=== PATIENT | female | born 1980 | race Caucasian/White ===

== ENCOUNTER 2018-11-25 17:13 | Inpatient (IN) | payer MEDICAID ==
[~2018-11-25] VITALS: Ht 152.4 cm; Wt 81.2 kg
[2018-11-25 17:18] VITALS: BP 115/61
--- NOTE | 2018-11-25 17:21 | NUR ---
PT SENT TO LOBBY FOR AVAILABLE BED.
--- NOTE | 2018-11-25 19:34 | NUR ---
PATIENT AMBULATED TO ER BED 6.
--- NOTE | 2018-11-25 19:45 | NUR ---
URINE COLLECTED AND SENT TO LAB
--- NOTE | 2018-11-25 19:46 | NUR ---
PT REPORTS LOWER BACK PAIN X2 MONTHS THAT EXACERBATED LAST NIGHT AND NOW RADIATES TO THE CENTER OF ABDOMEN, AND IS NOT RELIEVED BY IBUPROFEN. PT DENIES ANY TRAUMA/INJURY, DYSURIA, N/V/D/FEVER, NO OBVIOUS DEFORMITY/BRUISING NOTED. SKIN IS PINK/WARM/DRY; AAOX4 WITH EVEN AND STEADY GAIT; LUNGS CLEAR BL; HR EVEN AND REGULAR; VSS; PATIENT POSITIONED FOR COMFORT; HOB ELEVATED; BEDRAILS UP X1; BED DOWN. ER MD MADE AWARE OF PT STATUS.
[2018-11-25 20:53] LABS: APPEARANCE,URINE HAZY (CLEAR); BILIRUBIN,URINE 2+ (NEGATIVE); BLOOD, URINE NEGATIVE (NEGATIVE); COLOR,URINE DARK YELLOW (YELLOW); LEUKOCYTE ESTERASE ,URINE NEGATIVE (NEGATIVE); NITRITE, URINE NEGATIVE (NEGATIVE); UGLUCOSE NEGATIVE (NEGATIVE)
[2018-11-25] MEDS ORDERED: KETOROLAC 30 MG/ML VIAL IVP ONE (21:15)
--- NOTE | 2018-11-25 21:15 | NUR ---
PT C/O PAIN. ER MD TO PUT IN ORDERS FOR PAIN RELIEF.
[2018-11-25 21:45] LABS: BASOPHILS % (AUTO) 0.2 % (0.0-2.0); EOSINOPHILS # (AUTO) 0.1 K/uL (0-0.4); EOSINOPHILS % (AUTO) 1.3 % (0.0-4.0); HEMATOCRIT 38.4 % (36-48); HEMOGLOBIN 12.7 g/dL (12.0-16.0); LYMPHOCYTES # (AUTO) 1.9 K/uL (2.5-16.5); LYMPHOCYTES % (AUTO) 26.9 % (20.5-51.1); MEAN CORPUSCULAR HEMOGLOBIN 30 pg (27-31); MEAN CORPUSCULAR HGB CONC 33 g/dL (33-37); MEAN CORPUSCULAR VOLUME 88.8 fL (80-94); MONOCYTES # (AUTO) 0.4 K/uL (0.8-1.0); MONOCYTES % (AUTO) 6.1 % (1.7-9.3); NEUTROPHILS # (AUTO) 4.6 K/uL (1.8-7.7); NEUTROPHILS % (AUTO) 65.5 % (42.2-75.2); PLATELET COUNT (AUTO) 263 K/uL (140-450); RED BLOOD CELL COUNT(AUTO) 4.32 MIL/uL (4.20-5.40); RED CELL DISTRIBUTION WIDTH 13.8 % (11.6-13.7)
[2018-11-25 22:01] LABS: ALBUMIN 3.4 g/dL (3.4-5.0); ANION GAP 11.4 (8-16); CARBON DIOXIDE 27.9 mmol/L (21-32); CREATININE 0.9 mg/dL (0.6-1.3); POTASSIUM 4.3 mmol/L (3.5-5.1); TOTAL BILIRUBIN 1.8 mg/dL (0.0-1.0)
--- NOTE | 2018-11-25 22:15 | NUR ---
PT STILL C/O PAIN, NO RELIEF WITH TORADOL, ER MD AWARE.
[2018-11-25] MEDS ORDERED: MORPHINE SULFATE 4 MG/ML SYR IVP ONE (22:25)
--- NOTE | 2018-11-25 23:00 | NUR ---
PAIN CONTROLLED POST MORPHINE ADMIN.
[2018-11-26] MEDS: DEXT 5% / NACL 0.9% 500 ML IV SCH ×3 (00:10→14:28)
[2018-11-26] MEDS ORDERED: ONDANSETRON 4 MG/2 ML VIAL IVP PRN (00:10)
[2018-11-26] MEDS ORDERED: ACETAMINOPHEN 325 MG TAB PO PRN (00:10)
[2018-11-26] MEDS ORDERED: ZOLPIDEM 5 MG TAB PO PRN (00:10)
[2018-11-26] MEDS ORDERED: HYDROcodone/APAP 7.5/325 MG 1 TAB PO PRN (00:10)
[2018-11-26 00:45] VITALS: BP 118/70
--- NOTE | 2018-11-26 00:45 | NUR ---
RECEIVED FROM ER PER WHEELCHAIR AWAKE AND ALERT. PT. AMBULATING WELL TO RESTROOM INSIDE ROOM. ROM X 4. CLEAR SPEECH. NO SOB. DENIES PAIN AT THIS TIME RT MEDICATED IN ER WITH MORPHINE AND TORADOL IVP. DX. OF CHOLECYSTITIS. MEDICAL SURGICAL PT. CARE PLANS DISCUSSED WITH HER AND CALL LIGHT WITH IN REACH. ORIENTED TO ROOM , RAPID RESPONSE AND CARE GIVERS. IVF SITE TO LAC# 20 INTACT AND NO INFILTRATION NOTED. SKIN INTACT. NO EDEMA. CTAB.
--- NOTE | 2018-11-26 00:53 | NUR ---
Patient will be admitted to care of DR FLORES. Admited to 106-B. Will go to room TELE 106-B. Belongings list completed. Report to SIDDHARTHA [id number].
[2018-11-26 01:04] LABS: BARBITURATE, URINE NEG. ng/ml (NEG <=200); BENZODIAZEPINE, URINE NEG. ng/mL (NEG <=200); CANNABINOID, URINE NEG. ng/mL (NEG <=50); COCAINE, URINE NEG. ng/mL (NEG <=300); OPIATE, URINE NEG. ng/mL (NEG <=2000); PHENCYCLIDINE SCREEN,URINE NEG. ng/mL (NEG <=25)
[2018-11-26 01:04] LABS: FREE T4 (FREE THYROXINE) 1.1 ng/dL (0.76-1.46); MAGNESIUM 2.3 mg/dL (1.8-2.4); PHOSPHORUS 4.1 mg/dL (2.5-4.9); THYROID STIMULATING HORMONE 2.28 uIU/mL (0.34-3.74)
[2018-11-26 01:05] LABS: PROTHROMBIN TIME 9.7 secs (10.8-13.4)
[2018-11-26] MEDS ORDERED: cefTRIAXone 1,000 MG VIAL ONE (01:56)
[2018-11-26] MEDS ORDERED: metroNIDAZOLE 500 MG/NS PREMIX 100 ML IV ONE (01:56)
--- NOTE | 2018-11-26 02:01 | NUR ---
FIRST DOSE OF FLAGYL IVP 500 MG INFUSING ORDERED TO START NOW INITIAL DOSE. PT. AWAKE AND ALERT. ABLE TO VERBALIZE NEEDS WELL.
--- NOTE | 2018-11-26 02:28 | NUR ---
PT. SLEEPING. NO NOTED RESTLESSNESS. NO RASHES NOTED TO SKIN. NO S/S OF ALLERGIC REACTIONS TO FLAGYL IVP INFUSING.
[2018-11-26] MEDS ORDERED: metroNIDAZOLE 500 MG/NS PREMIX 100 ML IV SCH (05:00)
--- NOTE | 2018-11-26 05:28 | NUR ---
PT. SLEEPING AT THIS TIME.
--- NOTE | 2018-11-26 06:29 | NUR ---
PATIENT HAS BEEN SCREENED AND CATEGORIZED MODERATE NUTRITION RISK. PATIENT WILL BE SEEN WITHIN 3-5 DAYS OF ADMISSION. 11/28/18-11/30/18 SERGO TOWNSEND MS, RDN
--- NOTE | 2018-11-26 06:37 | NUR ---
CXR TAKEN . TOLERATED WELL. NO PAIN COMPLAINTS DONE THIS SHIFT.
--- NOTE | 2018-11-26 06:56 | NUR ---
NO COMPLAINTS OF ANY PAIN THIS SHIFT. A/O X 4. ROM X 4. WILL ENDORSE TO AM RN FOR CONTINUITY OF CARE. VERBALIZES WELL. CXR TAKEN. REMINDED NPO EXCEPT MEDICATIONS. "OK"
[2018-11-26 07:00] LABS: BASOPHILS % (AUTO) 0.2 % (0.0-2.0); EOSINOPHILS # (AUTO) 0.1 K/uL (0-0.4); EOSINOPHILS % (AUTO) 1.5 % (0.0-4.0); HEMOGLOBIN 12.3 g/dL (12.0-16.0); LYMPHOCYTES # (AUTO) 1.8 K/uL (2.5-16.5); MEAN CORPUSCULAR HEMOGLOBIN 30 pg (27-31); MEAN CORPUSCULAR HGB CONC 33 g/dL (33-37); MEAN CORPUSCULAR VOLUME 89.8 fL (80-94); MONOCYTES # (AUTO) 0.4 K/uL (0.8-1.0); MONOCYTES % (AUTO) 7.5 % (1.7-9.3); NEUTROPHILS # (AUTO) 2.8 K/uL (1.8-7.7); NEUTROPHILS % (AUTO) 55.8 % (42.2-75.2); PLATELET COUNT (AUTO) 246 K/uL (140-450); RED BLOOD CELL COUNT(AUTO) 4.12 MIL/uL (4.20-5.40); RED CELL DISTRIBUTION WIDTH 13.7 % (11.6-13.7)
[2018-11-26 07:16] LABS: ANION GAP 11.2 (8-16); CARBON DIOXIDE 27.8 mmol/L (21-32); CREATININE 0.7 mg/dL (0.6-1.3)
--- NOTE | 2018-11-26 07:20 | NUR ---
REPORT RECEIVED FROM AUTOMOBILE APPRAISER NURSE, PT SLEEPING QUIETLY, AROUSES EASILY, RESP EVEN UNLABORED ON RA, SKIN WARM DRY COLOR WNL, NO C/O PAIN, POC REVIEWED, ALL SAFETY MEASURES IN PLACE, DENIES ANY IMMEDIATE NEEDS, WILL CONTINUE TO MONITOR.
[2018-11-26 07:30] LABS: CHOL/HDL RATIO 2.5 (1-4.5)
[2018-11-26 08:00] VITALS: BP 95/50
--- NOTE | 2018-11-26 09:34 | NUR ---
PT UP AMBULATING AROUND THE HALLWAY WITH STADY GAIT WITH
[2018-11-26] MEDS: DOCUSATE SODIUM 100 MG GELCAP PO SCH ×2 (09:56→20:43)
[2018-11-26] MEDS: metroNIDAZOLE 500 MG/NS PREMIX 100 ML IV SCH ×2 (12:03→20:43)
--- NOTE | 2018-11-26 12:45 | NUR ---
DR POSADAS AT BEDSIDE FOR EVAL. DR BUNDY USED MEDICATION MANAGER PHONE TO COMMUNICATE WITH PT.
--- NOTE | 2018-11-26 12:59 | NUR ---
PT TAKEN TO HIDA SCAN AT THIS TIME IN WHEELCHAIR.
[2018-11-26] MEDS ORDERED: MORPHINE SULFATE 2 MG/ML SYR IVP PRN (13:00)
--- NOTE | 2018-11-26 14:15 | NUR ---
MORPHINE IVP 2MG GIVEN FOR HIDA SCAN.
--- NOTE | 2018-11-26 15:02 | NUR ---
PT RETURNED BACK FROM HIDA SCAN, PT PLACED BACK ON IVF, IV ISTE WNL, PT DENIES PAIN, PT TALKING WITH FAMILY MEMBER LAUGHING, SMILING, ALL SAFETY MEASURES IN PLACE, WILL CONTINUE TO MONITOR.
[2018-11-26 16:00] VITALS: BP 97/59
--- NOTE | 2018-11-26 17:12 | NUR ---
PT ELBA JELLO AND JUICE WELL WITHOUT VOMITING OR NAUSEA, REGULAR DIET ORDERED BY DR NGUYEN.
--- NOTE | 2018-11-26 18:50 | NUR ---
PT TOLERATED REGULAR DINNER WELL WITHOUT N/V, DENIES PAIN, PT STATES SHE STILL HAS NOT HAD BM SINCE 3 DAYS AGO, REQUEST MORE MEDS TO HELP WITH BM, PT ENCOURAGED TO INCREASE FLUID INTAKE AND PRUNE JUICE GIVEN, WILL REPORT TO CHEMICALS DISTILLER NURSE FOR ANOTHER DOSE OF COLACE.
--- NOTE | 2018-11-26 19:25 | NUR ---
REPORT GIVEN TO SENIOR VALIDATION ENGINEER NURSE, PT IN STABLE CONDITION.
--- NOTE | 2018-11-26 19:26 | NUR ---
RECEIVED BEDSIDE REPORT FROM DAY SHIFT RN, PATIENT LYING IN BED IN STABLE CONDITION WITH NO SIGNS OF DISTRESS ON RA. BED IS LOW, CALL LIGHT WITHIN REACH, WILL CONTINUE TO MONITOR.
--- NOTE | 2018-11-26 20:43 | NUR ---
ADMINISTERED SCHEDULED MEDICATIONS, PATIENT RESTING COMFORTABLY IN BED, NO SIGNS OF DISTRESS OR C/O PAIN, WILL CONTINUE TO MONITOR
--- NOTE | 2018-11-26 22:12 | NUR ---
PATIENT SITTING IN BED CONVERSING WITH ROOMMATE, NO SIGNS OF DISTRESS ON RA, BED LOW, ALL LIGHT IN REACH. WILL CONTINUE TO MONITOR
[2018-11-27 00:37] VITALS: BP 108/68
--- NOTE | 2018-11-27 01:53 | NUR ---
ADMINSTERED SCHEDULED MEDICATION, PATIENT SLEEPING , NO SIGNS OF DISTRESS.
--- NOTE | 2018-11-27 02:34 | NUR ---
PATIENT IS SLEEPING IN BED, NO SIGNS OF DISTRESS ON RA. WILL CONTINUE TO MONITOR.
--- NOTE | 2018-11-27 04:13 | NUR ---
PATIENT SLEEPING. NO SIGNS OF DISTRESS ON RA. WILL CONTINUE TO MONITOR.
[2018-11-27] MEDS: metroNIDAZOLE 500 MG/NS PREMIX 100 ML IV SCH (05:12)
--- NOTE | 2018-11-27 05:16 | NUR ---
ADMINISTERED SCHEDULED MEDICATIONS, PATIENT SLEEPING AND STABLE.
[2018-11-27 06:14] LABS: BASOPHILS % (AUTO) 0.2 % (0.0-2.0); EOSINOPHILS # (AUTO) 0.1 K/uL (0-0.4); EOSINOPHILS % (AUTO) 2.5 % (0.0-4.0); HEMATOCRIT 37.6 % (36-48); HEMOGLOBIN 12.2 g/dL (12.0-16.0); LYMPHOCYTES # (AUTO) 2.1 K/uL (2.5-16.5); LYMPHOCYTES % (AUTO) 43.4 % (20.5-51.1); MEAN CORPUSCULAR HEMOGLOBIN 29 pg (27-31); MEAN CORPUSCULAR HGB CONC 33 g/dL (33-37); MEAN CORPUSCULAR VOLUME 89.4 fL (80-94); MONOCYTES # (AUTO) 0.4 K/uL (0.8-1.0); MONOCYTES % (AUTO) 9.1 % (1.7-9.3); NEUTROPHILS # (AUTO) 2.1 K/uL (1.8-7.7); NEUTROPHILS % (AUTO) 44.8 % (42.2-75.2); PLATELET COUNT (AUTO) 241 K/uL (140-450); RED BLOOD CELL COUNT(AUTO) 4.21 MIL/uL (4.20-5.40); RED CELL DISTRIBUTION WIDTH 13.6 % (11.6-13.7); WHITE BLOOD COUNT (AUTO) 4.7 K/uL (4.8-10.8)
[2018-11-27 06:52] LABS: ANION GAP 9.2 (8-16); CARBON DIOXIDE 28.3 mmol/L (21-32); CREATININE 0.7 mg/dL (0.6-1.3); POTASSIUM 4.5 mmol/L (3.5-5.1)
[2018-11-27 07:03] LABS: MAGNESIUM 1.9 mg/dL (1.8-2.4); PHOSPHORUS 3.9 mg/dL (2.5-4.9)
--- NOTE | 2018-11-27 07:15 | NUR ---
RECEIVED REPORT FROM VISION CARE ASSOCIATE RN AT BEDSIDE. PT IS EASILY ROUSED, AOX4, NO DISTRESS NOTED ON RM AIR. PT IS CALM, COOPERATIVE. SKIN WARM TO TOUCH, INTACT. LUNGS CTA ON ALL LOBES. DENIES ANY PAIN AND NAUSEA. IV CATH TO THE LEFT AC, 22G, INTACT AND ASYMPTOMATIC. POC DISCUSSED, PATIENT VERBALIZED UNDERSTANDING. SAFETY MEASURES IN PLACE, CALL LIGHT WITHIN REACH. WILL CONTINUE TO MONITOR.
--- NOTE | 2018-11-27 07:18 | NUR ---
ENDORSED PT IN STABLE CONDITION TO AM NURSE.
[2018-11-27 08:00] VITALS: BP 118/55
[2018-11-27] MEDS: DOCUSATE SODIUM 100 MG GELCAP PO SCH (08:50)
--- NOTE | 2018-11-27 08:50 | NUR ---
PT HAD BREAKFAST. C/O CONSTIPATION, PROVED COLACE AND PRUNE JUICE.
[2018-11-27] MEDS ORDERED: MOT200 PO (10:33)
--- NOTE | 2018-11-27 11:08 | NUR ---
PT ALREADY DRESSED UP AND READY TO LEAVE. TOLD PT TO WAIT FOR PAPER WORK. PT AGREED.
--- NOTE | 2018-11-27 12:00 | NUR ---
PT DISCHARGED PER MD ORDER. PT WAS INSTRUCTED TO FOLLOW UP WITH THE APPT ON November AT [facility]. ALL IMAGE TEST REPORT PROVIDED TO PT REQUESTED. PT IS AWARE THAT SHE NEEDS FOLLOW UP WITH PCP AND DR POSADAS GENERAL SURGEON IF SHE WANTS ELECTIVE CHOLECYSTECTOMY. DISCHARGE INSTRUCTIONS AND MED TEACHING PROVIDED. NO RX ACCORDING TO DR NASSAR. PT CAN GET IBUPROFEN OTC. PT VERBALIZED UNDERSTANDING. COME BACK TO ER IF SYMPTOMS IS WORSE OR NEW SYMPTOMS APPEAR SUCH FEVER OR WORSENING OF PAIN, ETC. PT VERBALIZED UNDERSTANDING. REMOVED PT'S IV, TIP INTACT. PRESSURE APPLIED.
--- NOTE | 2018-11-27 12:30 | NUR ---
PT FINISHED LUNCH AND LEFT WITH ALL HER BELONGINGS. PT DENIES PAIN AND WALKED TO LOBBY BY HER SELF.
== END 2018-11-27 12:30 | disposition home or self-care (01) ==
LOC: MED 17:13 → MTU 11-26 00:15
PROVIDERS: ADMIT General Practice; ATTEND General Practice
DX: K80.10 Calculus of gallbladder with chronic cholecystitis without obstruction (principal); E66.9 Obesity, unspecified; Z68.35 Body mass index [BMI] 35.0-35.9, adult; Z71.3 Dietary counseling and surveillance; Z98.84 Bariatric surgery status; Z80.9 Family history of malignant neoplasm, unspecified; Z82.49 Family history of ischemic heart disease and other diseases of the circulatory system
CPT/HCPCS: 36415; 71045; 76705; 78445; 80048; 80053; 80305; 81003; 81025; 82150; 83036; 83690; 83735; 83880; 84100; 84439; 84443; 84484; 85025; 85610; 85730; 87081; 93005; 96374; 96375; 99285; A9510; J0696; J1885; J2270; J3490; J7042; J7060; Q0092